=== PATIENT | male | born 1990 ===

== ENCOUNTER 2018-10-30 14:41 | Emergency (ER) | payer SELFPAY ==
[2018-10-30 14:47] VITALS: PULSE 78; RESP 20; TEMP 98.4; O2SAT 98
[2018-10-30 14:51] VITALS: BP 138/74
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
== END 2018-10-30 16:55 | disposition home or self-care (01) ==
LOC: H.ER 14:41
DX: M54.5 Low back pain (principal); M62.830 Muscle spasm of back; V43.52XA Car driver injured in collision with other type car in traffic accident, initial encounter; Y92.410 Unspecified street and highway as the place of occurrence of the external cause